=== PATIENT | female | born 1980 | race Caucasian/White ===

== ENCOUNTER 2018-08-21 07:28 | Observation (INO) ==
[2018-08-21] MEDS ORDERED: ceFAZolin 2 GM Premix Inj 2 GM/50 ML PIGGYBACK IV.SIG ONE (07:54)
[2018-08-21] MEDS ORDERED: Metoprolol Tartrate 25 MG Tablet PO SCH (07:56)
[2018-08-21] MEDS ORDERED: Chlorhexidine Gluconate 2% 1 Pack (2 Cloths) TOPICAL SCH (07:56)
[2018-08-21] MEDS ORDERED: ceFAZolin 2 GM Premix Inj 2 GM/50 ML PIGGYBACK IV.SIG SCH (08:00)
[2018-08-21] MEDS ORDERED: Sodium Chlor 0.9% Inj 500 ML IV.SIG SCH (08:00)
[2018-08-21] MEDS ORDERED: Lidocaine 1%/Epinephrine 1:100,000 Inj 30 ML Vial ONE (08:21)
[2018-08-21 08:22] LABS: Baso % (Auto) 0.7 % (0.0-2.0); Eos % (Auto) 0.7 % (0.0-4.0); Hematocrit 36.6 % (35.0-46.0); Hemoglobin 12.4 gm/dL (11.6-15.3); Lymph # (Auto) 0.9 th/mm3 (1.0-4.8); Mean Corpuscular HGB Conc 33.7 % (32.0-36.0); Mean Corpuscular Hemoglobin 30.1 pg (27.0-34.0); Mean Corpuscular Volume 89.2 fL (80.0-100.0); Mean Platelet Volume 8.2 fL (7.0-11.0); Mono # (Auto) 0.3 th/mm3 (0.0-0.9); Mono % (Auto) 6.4 % (0.0-8.0); Neut # (Auto) 2.9 th/mm3 (1.8-7.7); Neut % (Auto) 70.2 % (16.0-70.0); Platelet Count 192 th/mm3 (150-450); Red Blood Count 4.11 mil/mm3 (4.00-5.30); Red Cell Distribution Width 13.1 % (11.6-17.2); White Blood Count 4.1 th/mm3 (4.0-11.0)
[2018-08-21] MEDS ORDERED: fentaNYL Citrate Inj 250 MCG/5 ML Ampul ONE (08:54)
[2018-08-21] MEDS ORDERED: ceFAZolin 1 GM Premix Inj 2 GM/100 ML PIGGYBACK IV.SIG ONE (09:13)
[2018-08-21] MEDS ORDERED: Ibuprofen 600 MG Tablet PO PRN (11:06)
[2018-08-21] MEDS ORDERED: *Meperidine Inj 25 MG/ML Vial PERIprocedural Use ONLY ONE (11:11)
--- NOTE | 2018-08-21 11:12 | P.PCNOB ---
Pre-Op/Post-Op Diagnoses Operation Date: 08/21/18 09:00 <No data on this case meets the specified criteria> excessive menses Procedure: Procedures Operation Date: 08/21/18 09:00 Actual Procedures Side Surgeon p Laparoscopic, Assist Vaginal Hysterectom, Bilateral Salpingectomy Bilateral Sony Brice MD Gun Tester: Felisha Petty Estimated blood loss (ml): 350 Anesthesia type: General Complications: none Specimen: uterus (bilateral tubes), other Disposition: observation Narrative: Patient was taken to the operating room and identified by name band and verbally. She received a general anesthetic and she was prepped and draped in the usual sterile manner for a laparoscopic hysterectomy. A Ascencio catheter was inserted. A time out was taken and an exam under anesthesia was carried out with the above findings. A speculum was placed in the vagina and the anterior lip of the cervix was grasped with a single-tooth tenaculum. A Hulka clamp was placed and attention was turned to the umbilical area a small subumbilical incision was made and using a 5 mm trocar the abdomen was entered under direct vision and a pneumoperitoneum was created with 3 L of CO2. Inferior lateral to the umbilicus bilaterally 2 more 5 mm trochar were placed under direct vision. Beginning with the round ligaments they were taken down with a harmonic scalpel. The fimbriated ends of the fallopian tube was then grasped and the mesosalpinx was taken down the entire length of the fallopian tubes. The broad ligament was then taken down with the harmonic scalpel to the level of the internal cervical os. The uterine vessels were skeletonized. The bladder flap was now more fully developed and the bladder was pushed out of harm's way. The uterine vessels were then taken at the level of the internal cervical os with the harmonic scalpel. The cardinal ligament was then taken down with the harmonic scalpel staying very close to the cervix until the vaginal apex was obtained. At this point we went below and put a weighted speculum into the vagina removed the Hulka clamp and make a circumferential incision around the cervix the uterus and tubes were then delivered through the vagina without difficulty. The vaginal cuff was then repaired with 0 Vicryl pop offs is in interrupted fashion with good results. Hemostasis was excellent. A sponge stick was placed in the vagina and we returned to the laparoscopic portion. All pedicles were inspected and were dry the pelvis was cleaned of blood and debris with the suction bookkeeping manager the laparoscope was then removed under direct vision the pneumoperitoneum was released through the second and third punctures and those trochar were removed. The abdominal incisions were then repaired with 4- 0 Monocryl in a subcuticular manner. Patient tolerated the procedure well and went to the recovery room in satisfactory condition.
[2018-08-21] MEDS ORDERED: *morphine SULFATE 4 MG/ML PERIprocedure ONLY ONE ×2 (11:18→11:25)
[2018-08-21] MEDS: HYDROmorphone PF Inj 1 MG/ML Ampul IV.PUSH PRN ×3 (12:52→22:03)
[2018-08-22] MEDS: HYDROmorphone PF Inj 1 MG/ML Ampul IV.PUSH PRN (03:39)
[2018-08-22 08:53] VITALS: BP 101/60; PULSE 68; RESP 20; TEMP 98.5; O2SAT 100
--- NOTE | 2018-08-22 09:17 | P.PNOB ---
Subjective Post op day: 1 Interval history: doing well, ready to dc home Objective Vital Signs/I&O: Vital Signs 08/21/18 10:55 08/21/18 11:10 08/21/18 11:25 Temperature 98.1 F Pulse Rate 116 H 103 H 99 H Respiratory Rate 20 20 18 Blood Pressure 113/75 107/62 103/58 L Pulse Oximetry 100 100 100 08/21/18 11:36 08/21/18 12:45 08/21/18 16:10 Temperature 98.0 F 98.1 F 98.4 F Pulse Rate 95 H 82 78 Respiratory Rate 18 16 16 Blood Pressure 103/61 112/64 100/60 Pulse Oximetry 100 08/21/18 20:13 08/22/18 00:11 08/22/18 04:05 Temperature 98.1 F 98.3 F 98.0 F Pulse Rate 74 74 58 L Respiratory Rate 18 16 16 Blood Pressure 101/56 L 86/51 L 95/61 L Pulse Oximetry 98 98 99 08/22/18 08:00 Temperature 98.5 F Pulse Rate 68 Respiratory Rate 20 Blood Pressure 101/60 Pulse Oximetry 100 Intake & Output 08/21/18 08/22/18 08/22/18 18:59 06:59 18:59 Intake Total 1300 / 1300 Output Total 1000 / 1000 1625 / 1625 Balance 300 / 300 -1625 / -1625 Weight 61.3 kg Intake: IV 1100 / 1100 LR 1000 mL Inj 1,000 ML @ 30 1000 / 1000 mls/hr IV.SIG .Q24H [facility] Rx#: [id number] Ancef 1 GM Premix Inj 2 gm In 100 / 100 100 ml @ 0 mls/hr IV.SIG .STK- [facility] Rx#:[id number] Anesthesia Amount 200 / 200 Output: Estimated Blood Loss 350 / 350 Urine Amount (Catheter) 650 / 650 1625 / 1625 Indwelling Urethral Catheter 650 / 650 1625 / 1625 Other: Weight On Admission 61.3 kg Result Diagrams: 08/21/18 08:00 Objective Remarks: GENERAL: Well-nourished, well-developed patient. . ABDOMEN/GI: Abdomen soft, non-tender, bowel sounds present. Incision: Clean, dry and intact. Fundus: Firm, non-tender at umbilicus. GENITOURINARY: Light to moderate bleeding. EXTREMITIES: No cyanosis or edema, non-tender, without signs of DVT. Medications and IVs: Active Medications Chlorhexidine Gluconate (Chlorhexidine 2% Cloth) 3 pack [employer] [facility] Stop: 08/24/18 07:55 Last Admin: 08/21/18 07:50 Dose: 3 pack Diphenhydramine HCl (Benadryl) 25 mg PO Q6H PRN PRN Reason: ITCHING Last Admin: 08/21/18 17:25 Dose: 25 mg Hydromorphone HCl (Dilaudid Pf Inj) 1 mg IV.PUSH Q4H PRN PRN Reason: PAIN SCALE 6 TO 10 Last Admin: 08/22/18 03:39 Dose: 1 mg Cefazolin Sodium/Dextrose (Ancef 2 Gm Premix Inj) 2 gm in 50 mls @ 100 mls/hr IV.SIG [employer] [facility] Stop: 08/24/18 07:59 Sodium Chloride (Ns Inj) 500 mls @ 30 mls/hr IV.SIG .Q10H [facility] Last Admin: 08/21/18 08:18 Dose: Not Given Lactated Ringer's (Lr 1000 Ml Inj) 1,000 mls @ 30 mls/hr IV.SIG .Q24H [facility] Stop: 08/24/18 07:59 Last Infusion: 08/21/18 10:34 Dose: Infused Ibuprofen (Motrin) 600 mg PO Q6H PRN PRN Reason: Pain 1-10 And/Or Fever >101 F Last Admin: 08/22/18 08:27 Dose: 600 mg Metoprolol Tartrate (Lopressor) 25 mg PO [employer] [facility] Stop: 08/24/18 07:55 Last Admin: 08/21/18 08:18 Dose: Not Given Miscellaneous Information ([facility]) 1 each OTHER UNSCH PRN PRN Reason: SEE LABEL COMMENTS Stop: 08/22/18 10:56 Ondansetron HCl (Zofran Inj) 4 mg IV.PUSH Q6H PRN PRN Reason: NAUSEA OR VOMITING Last Admin: 08/22/18 03:39 Dose: 4 mg Povidone Iodine (Betadine 5% Antisepsis Kit) 1 applicatio EACH [employer] [facility] Stop: 08/24/18 07:55 Last Admin: 08/21/18 08:00 Dose: 1 applicatio Sodium Chloride (Ns Flush) 2 ml IV.FLUSH BID [facility] Last Admin: 08/21/18 22:04 Dose: Not Given Sodium Chloride (Ns Flush) 2 ml IV.FLUSH PRN PRN PRN Reason: FLUSH AFTER USING IV ACCESS Last Admin: 08/22/18 08:27 Dose: 2 ml Assessment and Plan - Diagnosis (1) Excessive menstruation Code(s): N92.0 - Excessive and frequent menstruation with regular cycle Status : Acute - Plan Discharge Planning: doing well
--- NOTE | 2018-08-22 09:22 | P.DS ---
Date of admission: 08/21/18 12:23 Primary care physician: No Primary Care Physician Brief History from admission: patient came for [facility] had it done and went home POD #1 DS: Diagnosis - Discharge Diagnosis (1) Excessive menstruation Status: Acute DS: Summary Hospital Course: patient had surgery was voiding and tolerating diet prior to DC home - Time Spent with Patient Total time spent providing and/or coordinating discharge services: Less than 30 minutes - Quality: VTE Deep Vein Thrombosis/Pulmonary Embolism Present on Admission: No Exam Vital signs: Vital Signs 08/21/18 10:55 08/21/18 11:10 08/21/18 11:25 Temperature 98.1 F Pulse Rate 116 H 103 H 99 H Respiratory Rate 20 20 18 Blood Pressure 113/75 107/62 103/58 L Pulse Oximetry 100 100 100 08/21/18 11:36 08/21/18 12:45 08/21/18 16:10 Temperature 98.0 F 98.1 F 98.4 F Pulse Rate 95 H 82 78 Respiratory Rate 18 16 16 Blood Pressure 103/61 112/64 100/60 Pulse Oximetry 100 08/21/18 20:13 08/22/18 00:11 08/22/18 04:05 Temperature 98.1 F 98.3 F 98.0 F Pulse Rate 74 74 58 L Respiratory Rate 18 16 16 Blood Pressure 101/56 L 86/51 L 95/61 L Pulse Oximetry 98 98 99 08/22/18 08:00 Temperature 98.5 F Pulse Rate 68 Respiratory Rate 20 Blood Pressure 101/60 Pulse Oximetry 100 Intake & Output 08/21/18 08/22/18 08/22/18 18:59 06:59 18:59 Intake Total 1300 / 1300 Output Total 1000 / 1000 1625 / 1625 Balance 300 / 300 -1625 / -1625 Weight 61.3 kg Intake: IV 1100 / 1100 LR 1000 mL Inj 1,000 ML @ 30 1000 / 1000 mls/hr IV.SIG .Q24H [facility] Rx#: [id number] Ancef 1 GM Premix Inj 2 gm In 100 / 100 100 ml @ 0 mls/hr IV.SIG .STK- [facility] Rx#:[id number] Anesthesia Amount 200 / 200 Output: Estimated Blood Loss 350 / 350 Urine Amount (Catheter) 650 / 650 1625 / 1625 Indwelling Urethral Catheter 650 / 650 1625 / 1625 Other: Weight On Admission 61.3 kg - Constitutional no acute distress Results Procedures completed during hospitalization: LAVH bilateral salpingectomy Pending studies at discharge: Pending at discharge 08/21/18 12:26 Surgical [PTH] Routine Discharge Plan - Discharge Disposition Patient Disposition: 01 Discharge Home - Discharge Order Discharge Orders: Discharge Order (Routine); Ordered 08/22/18 Ordered By: Sony Brice - Discharge Details Discharge Comment: must urinate before DC - Physicians Team Primary Care Provider: Primary Care Galilea Lopez Attending Provider: Sony Brice - Rxs /Orders / Referrals /Forms Prescriptions: Continue No Known Home Medications Referrals: Sony Brice MD [Physician] - See Instructions (2 weeks) Primary Care Galilea Lopez [Primary Care Provider] - See Instructions - Post Discharge Care Plan Care Plan Goals: We want you to have a wonderful recovery! Please Report the Following Symptoms to Your Doctor: -Temperature above 100.5 degrees -Redness of incision or excessive or foul smelling drainage -Unusual pain or calf pain -Increased vaginal bleeding -Painful or difficulty urinating Goals to Promote Your Health * To prevent worsening of your condition and complications * To maintain your health at the optimal level Directions to Meet Your Goals Take your medications as prescribed Follow your dietary instruction Follow activity as directed Ensure plenty of rest for recovery Drink fluids for hydration Keep your appointments as scheduled Take your immunizations and boosters as scheduled If your symptoms worsen call your LINEN ROOM WORKER Physician, or go to an Urgent Care Center or Emergency Room Smoking is Dangerous to your health. Avoid second hand smoke Call the 24-hour crisis hotline for domestic abuse at
== END 2018-08-22 10:40 | disposition home or self-care (01) ==
LOC: HSDC 07:28 → H1EA 07:28
PROVIDERS: ADMIT Obstetrics & Gynecology; ATTEND Obstetrics & Gynecology